=== PATIENT | female | born 1970 | race Caucasian/White ===

== ENCOUNTER 2021-01-16 17:07 | Emergency (ER) | payer OTHER ==
[~2021-01-16 17:07] MED LIST: ALBUTEROL2.5 MG/3 M INH; ASPIRIN EC81 MG PO; DILTIAZEM 24HR120 M1 PO; FLUZONE QU60 MCG/015 IM; IMDUR ER TAB 3030 MG PO; LIPITOR10 MG PO; MEDROL DOSEPAK 24 MG PO; MUCINEX600 MG PO; OMNICEF 300 MG300 MG PO; PREDNISONE20 MG PO; SYMBICORT 160-1 INHA INH; TIZANIDINE HCL4 M1 PO; VENTOLIN HFA 66.7 GM INH; ZANTAC 150 MG150 MG PO
[2021-01-16 18:48] LABS: HEMOGLOBIN 15.2 gm/dl (12.3-15.3); RED BLOOD COUNT 4.55 M/UL (4.00-5.10); WHITE BLOOD COUNT 10.6 K/UL (4.5-11.0)
[2021-01-16 19:15] LABS: BUN/CREATININE RATIO 8 (0-10)
[2021-01-16] MEDS ORDERED: CEPHALEXIN500 M1 PO (20:21)
[2021-01-16] MEDS ORDERED: K-DUR TAB 20 M20 MEQ PO (20:21)
== END 2021-01-16 20:42 | disposition home or self-care (01) ==
LOC: ER1 17:07
PROVIDERS: Emergency Medicine
DX: L03.313 Cellulitis of chest wall (principal); E87.6 Hypokalemia; F17.200 Nicotine dependence, unspecified, uncomplicated; Z86.718 Personal history of other venous thrombosis and embolism
CPT/HCPCS: 71260; 80053; 85025; 99283; Q9967

== ENCOUNTER → 2021-05-01 | Outpatient (CLI) | payer OTHER ==
[~2021-05-01] MED LIST changes: +CEPHALEXIN500 M1 PO; +K-DUR TAB 20 M20 MEQ PO
== END ==
LOC: CT 14:38
DX: D35.02 Benign neoplasm of left adrenal gland (principal); D35.01 Benign neoplasm of right adrenal gland
CPT/HCPCS: Q9967

== ENCOUNTER → 2021-07-27 | Outpatient (CLI) | payer OTHER | LOC: KOH-I 13:45 | DX: R06.02 Shortness of breath (principal) | CPT/HCPCS: 71046 ==

== ENCOUNTER → 2022-01-16 | Outpatient (CLI) | payer OTHER | LOC: KOH-I 09:38 | DX: R06.02 Shortness of breath (principal) | CPT/HCPCS: 71046 ==